=== PATIENT | female | born 1995 | race Caucasian/White ===

== ENCOUNTER → 2024-02-05 10:24 | Outpatient (BNVA) | payer OTHER, SELFPAY | PROVIDERS: Visit Provider Emergency Medicine | DX: J02.9 Acute pharyngitis, unspecified (principal) | CPT/HCPCS: 87880 ==

== ENCOUNTER 2024-03-13 14:36 | Emergency (ER) | payer OTHER, MEDICAID, SELFPAY ==
[2024-03-13 15:20] VITALS: BP 104/71; PULSE 76; RESP 14; TEMP 37.1; O2SAT 96
[2024-03-13 16:54] LABS: Basophils # 0.1 10^3/uL (0.0-0.1); Basophils % 0.3 %; Eosinophils # 0.1 10^3/uL (0.0-0.8); Eosinophils % 0.9 %; Hematocrit 42.1 % (36-47); Lymphocytes # 1.5 10^3/uL (0.8-4.8); Lymphocytes % 9.3 %; Mean Corpuscular HGB Conc 31.4 g/dL (30-55); Mean Corpuscular Hemoglobin 26.1 pg (27-33); Mean Corpuscular Volume 83.4 fl (85-98); Mean Platelet Volume 10.7 fL (7.4-10.4); Monocytes # 0.8 10^3/uL (0.2-0.9); Monocytes % 5.2 %; Neutrophils # 13.57 10^3/uL (1.8-7.7); Neutrophils % 83.8 %; Nucleated Red Blood Cells % 0 %; Platelet Count 312 10^3/cmm (157-399); Red Blood Count 5.05 10^6/uL (3.85-5.65); Red Cell Distribution Width 14.6 % (12.1-15.1); White Blood Count 16.19 10^3/uL (3.29-11.43)
[2024-03-13 17:03] LABS: HCG, Serum Qual Negative (Negative)
[2024-03-13 17:11] LABS: Alanine Aminotransferase 26 U/L (0-33); Albumin Level 4.2 g/dL (3.5-5.2); Alkaline Phosphatase 88 U/L (35-105); Anion Gap 16.1 (5-19); Aspartate Amino Transferase 16 U/L (0-32); Blood Urea Nitrogen 11 mg/dL (6-20); Calcium 9.4 mg/dL (8.5-10.5); Carbon Dioxide 24 mmol/L (22-29); Chloride 102 mmol/L (98-107); Creatinine Clr Calc Pharmacy 94.2467; Globulin 3.2 g/dL (1.3-4.6); Glomerular Filtration Rate 117.4 mL/min (90-130); Glucose 96 mg/dL (65-115); Lipase 15 U/L (13-60); Osmolality Calculated 285 mOsm/kg (285-295); Potassium 4.1 mmol/L (3.5-5.1); Sodium 138 mmol/L (136-145); Total Bilirubin 0.2 mg/dL (0.15-1.2); Total Protein 7.4 g/dL (6.6-8.7)
[2024-03-13 17:50] VITALS: BP 121/69; PULSE 71; O2SAT 95
[2024-03-13 17:59] LABS: Bilirubin Urine Negative (Negative); Blood Urine Negative (Negative); Glucose Urine UA Negative (Normal); Ketones Urine Negative (Negative); Leukocyte Esterase Urine Negative (Negative); Nitrate Urine Negative (Negative); Protein Urine Trace (Negative); Specific Gravity, Urine 1.022 (1.005-1.030); Urine Appearance Turbid (CLEAR); Urine Color Yellow (Yellow)
--- NOTE | 2024-03-13 18:01 | CTR_ITS ---
PROCEDURE INFORMATION: Exam: CTA Chest With Contrast Exam date and time: 03/13/2024 6:23 PM Age: 28 years old Clinical indication: Chest pressure; Patient HX: Chest pain; Ruq pain; Tachycardia; Leukocytosis; Additional info: Ruq R lower chest pain, tachycardia TECHNIQUE: Imaging protocol: Computed tomographic angiography of the chest with contrast. Exam focused on the arteries. 3D rendering (Not supervised by radiologist): MIP and/or 3D reconstructed images were created by the technologist. Radiation optimization: All CT scans at this facility use at least one of these dose optimization techniques: automated exposure control; mA and/or kV adjustment per patient size (includes targeted exams where dose is matched to clinical indication); or iterative reconstruction. Contrast material: [id number]; Contrast volume: 62 ml; Contrast route: INTRAVENOUS (IV); COMPARISON: No relevant prior studies available. RADIATION DOSE METRICS: Total DLP (mGy-cm): 156.48 FINDINGS: Pulmonary arteries: No filling defects identified within the pulmonary arteries to suggest pulmonary embolism. Aorta: No thoracic aortic aneurysm or dissection. Lungs: No focal lung consolidation. Mild bibasilar atelectasis/scar. Pleural spaces: No pneumothorax. No pleural effusion. Heart: No cardiomegaly. No pericardial effusion. Mediastinal space: Visualized trachea and esophagus are unremarkable in appearance. Lymph nodes: No mediastinal or hilar lymphadenopathy. No axillary lymphadenopathy. Bones/joints: No acute bony abnormality. Soft tissues: Subcutaneous soft tissues are unremarkable. CT/CT angio chest PE protcl [id number] IMPRESSION: 1. No filling defects identified within the pulmonary arteries to suggest pulmonary embolism. 2. No thoracic aortic aneurysm or dissection. 3. No focal lung consolidation.
[2024-03-13 18:04] LABS: Add Urine Microscopic? YES; Bacteria Urine Trace /hpf; RBC Urine 0-2 /hpf (0-2)
--- NOTE | 2024-03-13 18:07 | ED_ITS ---
HPI - Abdominal Pain 2 General: Chief Complaint: Abdominal Pain Stated Complaint: n/v,headache Time Seen by Provider: 03/13/24 16:05 History of Present Illness: Healthy 28-year-old female with right upper quadrant/right lower chest discomfort for 24 hours. Pain is worse with taking a deep breath. She has been nauseated at times, not now. No vomiting or diarrhea. No fever. Minimal cough she says. No sputum production. She has not really had this pain before. No history of belly surgeries. She has missed a menstrual period she says. Related Data Home Medications Medication Instructions Recorded Confirmed fluoxetine 10 mg capsule 10 mg PO DAILY 02/05/24 02/16/24 Previous Rx's Medication Instructions Recorded ketorolac 10 mg tablet 10 mg PO TID PRN pain #10 tabs 03/13/24 ondansetron 8 mg disintegrating 8 mg PO Q8H 5 days #15 tabs 03/13/24 tablet Allergies Allergy/AdvReac Type Severity Reaction Status Date / Time No Known Allergies Allergy Verified 03/13/24 15:26 PFS ED 2 PFSH: Social History Smoking and tobacco/nicotine status: tobacco/nicotine user, details unknown Physical Exam 2 Const: COMMON NORMALS: no acute distress GENERAL APPEARANCE: cooperative; not ill appearing and not frail appearing HENMT: COMMON NORMALS: normocephalic, atraumatic and Normal external nose present HEAD & SCALP: normocephalic and atraumatic FACE & SINUS: normal facial exam and face symmetric NOSE: Normal external nose present Eye: COMMON NORMALS: Equal, round and reactive pupils present and EOMs intact bilaterally PUPIL: Yes Equal, round and reactive pupils present Neck/C-Spine: GENERAL: Yes trachea midline Chest: CHEST: Yes Symmetrical chest wall rise Resp: COMMON NORMALS: normal respiratory effort, No retractions, No use of accessory muscles and clear to auscultation bilaterally AUSCULTATION: clear to auscultation bilaterally Cardio: COMMON NORMALS: regular rate and regular rhythm RATE: regular rate RHYTHM: regular rhythm GI: COMMON NORMALS: Normal to inspection, nondistended, normoactive bowel sounds present Extremity: COMMON NORMALS: no pedal edema Neuro: [place] COMA SCALE: document GCS findings [place] coma scale eye opening: Spontaneous [place] coma scale verbal response: Orientated [place] coma scale motor response: Obey commands [place] coma scale total score: 15 S ENSORY EXAM: Yes extremities (intact) Psych: COMMON NORMALS: speech normal SPEECH: Yes normal speech Skin: COMMON NORMALS: no rashes or lesions noted GENERAL SKIN EXAM: no rashes or lesions noted Course 2 Vital Signs: Vital signs: Vital Signs Temperature 98.7 F 03/13/24 15:20 Pulse Rate 80 03/13/24 21:44 Respiratory Rate 17 03/13/24 21:07 Blood Pressure 105/71 03/13/24 21:44 Pulse Oximetry 100 03/13/24 21:44 Oxygen Delivery Me thod Room Air 03/13/24 21:07 MDM - Abdominal Pain Medical Decision Making 28-year-old female with somewhat pleuritic right-sided lower chest pain. Initially tachycardic, now not. Saturations have been 96 to 100% on room air. She is normotensive. However, white blood cell count is 16. BMP is normal. Lipase is 15. Urinalysis is negative. There is no hematuria or infection. CTA of the chest shows no PE, no consolidation/pneumonia, no pleural effusion. Right upper quadrant ultrasound is negative. Will treat for chest wall pain. She is to return for worsening symptoms. Outpatient follow-up Lab Data 03/13/24 16:35 03/13/24 16:35 Labs/Radiology: Radiology Impressions Chest CTA 03/13/24 18:01 IMPRESSION: 1. No filling defects identified within the pulmonary arteries to suggest pulmonary embolism. 2. No thoracic aortic aneurysm or dissection. 3. No focal lung consolidation. Gallbladder Ultrasound 03/13/24 19:44 IMPRESSION: 1. No cholelithiasis or sonographic evidence of acute cholecystitis. Laboratory Results WBC 16.19 10^3/uL (3.29-11.43) H 03/13/24 16:35 RBC 5.05 10^6/uL (3.85-5.65) 03/13/24 16:35 Hgb 13.20 g/dL (11.27-16.99) 03/13/24 16:35 Hct 42.1 % (36-47) 03/13/24 16:35 MCV 83.4 fl (85-98) L 03/13/24 16:35 MCH 26.1 pg (27-33) L 03/13/24 16:35 MCHC 31.4 g/dL (30-55) 03/13/24 16:35 RDW 14.6 % (12.1-15.1) 03/13/24 16:35 Plt Count 312 10^3/cmm (157-399) 03/13/24 16:35 MPV 10.7 fL (7.4-10.4) H 03/13/24 16:35 Neut % (Auto) 83.8 % 03/13/24 16:35 Lymph % (Auto) 9.3 % 03/13/24 16:35 Wirt % (Auto) 5.2 % 03/13/24 16:35 Eos % (Auto) 0.9 % 03/13/24 16:35 Baso % (Auto) 0.3 % 03/13/24 16:35 Neut # (Auto) 13.57 10^3/uL (1.8-7.7) H 03/13/24 16:35 Lymph # (Auto) 1.5 10^3/uL (0.8-4.8) 03/13/24 16:35 Wirt # (Auto) 0.8 10^3/uL (0.2-0.9) 03/13/24 16:35 Eos # (Auto) 0.1 10^3/uL (0.0-0.8) 03/13/24 16:35 Baso # (Auto) 0.1 10^3/uL (0.0-0.1) 03/13/24 16:35 Nucleated RBC % (auto) 0 % 03/13/24 16:35 Nucleated RBCs # 0.0 /100WBC 03/13/24 16:35 Sodium 138 mmol/L (136-145) 03/13/24 16:35 Potassium 4.1 mmol/L (3.5-5.1) 03/13/24 16:35 Chloride 102 mmol/L (98-107) 03/13/24 16:35 Carbon Dioxide 24 mmol/L (22-29) 03/13/24 16:35 Anion Gap 16.1 (5-19) 03/13/24 16:35 BUN 11 mg/dL (6-20) 03/13/24 16:35 Creatinine 0.6 mg/dL (0.5-0.9) 03/13/24 16:35 GFR Calculation 117.4 mL/min (90-130) 03/13/24 16:35 Glucose 96 mg/dL (65-115) 03/13/24 16:35 Calculated Osmolality 285 mOsm/kg (285-295) 03/13/24 16:35 Calcium 9.4 mg/dL (8.5-10.5) 03/13/24 16:35 Total Bilirubin 0.2 mg/dL (0.15-1.2) 03/13/24 16:35 AST 16 U/L (0-32) 03/13/24 16:35 ALT 26 U/L (0-33) 03/13/24 16:35 Alkaline Phosphatase 88 U/L (35-105) 03/13/24 16:35 Total Protein 7.4 g/dL (6.6-8.7) 03/13/24 16:35 Albumin 4.2 g/dL (3.5-5.2) 03/13/24 16:35 Globulin 3.2 g/dL (1.3-4.6) 03/13/24 16:35 Lipase 15 U/L (13-60) 03/13/24 16:35 HCG, Qual Negative (Negative) 03/13/24 16:35 Urine Color Yellow (Yellow) 03/13/24 17:40 Urine Appearance Turbid (CLEAR) A 03/13/24 17:40 Urine pH 8.0 (5-7) A 03/13/24 17:40 Ur Specific [place] 1.022 (1.005-1.030) 03/13/24 17:40 Urine Protein Trace (Negative) A 03/13/24 17:40 Urine Glucose (UA) Negative (Normal) 03/13/24 17:40 Urine Ketones Negative (Negative) 03/13/24 17:40 Urine Blood Negative (Negative) 03/13/24 17:40 Urine Nitrate Negative (Negative) 03/13/24 17:40 Urine Bilirubin Negative (Negative) 03/13/24 17:40 Urine Urobilinogen 1.0 mg/dL (Negative) 03/13/24 17:40 Ur Leukocyte Esterase Negative (Negative) 03/13/24 17:40 Urine RBC 0-2 /hpf (0-2) 03/13/24 17:40 Urine WBC 11-20 /hpf (0-5) H 03/13/24 17:40 Ur Squamous Epith Cells 6-10 /hpf (0-5) 03/13/24 17:40 Amorphous Sediment Not Reportable 03/13/24 17:40 Urine Bacteria Trace /hpf (NONE) 03/13/24 17:40 Hyaline Casts 3.30 /lpf 03/13/24 17:40 XR interpretation done by ED provider, pending radiology final review Discharge Plan Discharge Patient Disposition: Home Clinical Impression: Right-sided chest wall pain Condition: Stable Prescriptions: New ketorolac 10 mg tablet 10 mg PO TID PRN (Reason: pain) Qty: 10 0RF Continued ondansetron 8 mg tablet,disintegrating 8 mg PO Q8H 5 Days Qty: 15 0RF Discontinued ibuprofen 600 mg tablet 600 mg PO Q8H PRN (Reason: pain) Qty: 30 0RF Rx Instructions: take with food No Action fluoxetine 10 mg capsule 10 mg PO DAILY Discharge Orders: Discharge ED (Routine); Ordered 03/13/24 Ordered By: Esdras Strange Patient Instructions: Chest Wall Pain (ED), Opioid Safety, Pain Management Activity Restrictions/Additional Instructions: Return for fever, worsening pain despite treatment, vomiting liquids or medications, shortness of breath, any other concerning symptoms. See your doctor next week. Call tomorrow for an appointment. Medication as directed Stand Alone Forms: Work/School Release Coding Level of Care Code ED Computer Support Specialist for Khadra Arenas
[2024-03-13] MEDS: iohexol 350 mg/mL 500 mL Btl (per mL) IV (18:26)
[2024-03-13 18:40] VITALS: BP 108/70; PULSE 77; O2SAT 100
[2024-03-13 19:43] VITALS: BP 107/61; PULSE 100; RESP 18; O2SAT 98
--- NOTE | 2024-03-13 19:44 | USR_ITS ---
PROCEDURE INFORMATION: Exam: US Abdomen, Limited; Right Upper Quadrant Exam date and time: 03/13/2024 9:00 PM Age: 28 years old Clinical indication: Abdominal pain; Localized; Right upper quadrant (ruq); Additional info: Ruq pain TECHNIQUE: Imaging protocol: Real time ultrasound of the abdomen with image documentation. Limited exam focused on the right upper quadrant. COMPARISON: CT angio chest PE protcl [id number] 03/13/2024 6:23 PM FINDINGS: Liver: Visualized hepatic parenchyma is unremarkable. The liver contour is grossly smooth. Gallbladder: No evidence of cholelithiasis. No significant wall thickening or edema to suggest cholecystitis.The finished goods planner reports a negative sonographic Garcia's sign. Biliary ducts: The CBD is nondilated, measuring 6 mm. No sonographic evidence of intraductal stone. Pancreas: The pancreas is mostly obscured bowel gas. Visualized portions are grossly unremarkable. Right kidney: The right kidney is normal in echotexture and measures 7.9 cm in length. No evidence of hydronephrosis. US/US gall bladder [id number] IMPRESSION: 1. No cholelithiasis or sonographic evidence of acute cholecystitis.
--- NOTE | 2024-03-13 19:44 | PC.NURSE ---
Rounded on pt. Pt assisted to restroom at this time. Denies further needs.
[2024-03-13 21:07] VITALS: BP 108/65; PULSE 75; RESP 17; O2SAT 100
--- NOTE | 2024-03-13 21:08 | PC.NURSE ---
US at bedside at this time.
[2024-03-13] MEDS: ketorolac 30 mg/mL INJ IVP (21:43)
[2024-03-13] MEDS: ondansetron 2 mg/ML SDV 2 mL 4 MG IVP (21:43)
[2024-03-13 21:44] VITALS: BP 105/71; PULSE 80; O2SAT 100
== END 2024-03-13 21:55 | disposition home or self-care (01) ==
PROVIDERS: Emergency Medicine; Emergency Provider Emergency Medicine
DX: R07.89 Other chest pain (principal)
CPT/HCPCS: 36415; 71275; 76705; 80053; 81001; 83690; 84703; 85025; 96374; 96375; 99285; J1885; J2405

== ENCOUNTER → 2024-04-07 15:03 | Outpatient (BNVA) | payer MEDICAID, SELFPAY | PROVIDERS: Visit Provider Nurse Practitioner Women's Health | DX: N92.6 Irregular menstruation, unspecified (principal) | CPT/HCPCS: 81025; 84702 ==

== ENCOUNTER → 2024-04-22 13:27 | Outpatient (BNVA) | payer MEDICAID, SELFPAY | PROVIDERS: Visit Provider Nurse Practitioner Women's Health | DX: O26.891 Other specified pregnancy related conditions, first trimester (principal); Z3A.08 8 weeks gestation of pregnancy | CPT/HCPCS: 76801; 80307; 83036; 84315; 85025; 86592; 86762; 86803; 86850; 86900; 87086; 87340; 87806 ==

== ENCOUNTER → 2024-05-31 13:40 | Outpatient (BNVA) | payer MEDICAID, SELFPAY | PROVIDERS: Visit Provider Nurse Practitioner Women's Health | DX: Z34.01 Encounter for supervision of normal first pregnancy, first trimester (principal) | CPT/HCPCS: 84315 ==

== ENCOUNTER → 2024-06-06 13:05 | Outpatient (BNVA) | payer MEDICAID, SELFPAY | PROVIDERS: Visit Provider Obstetrics & Gynecology | DX: O26.891 Other specified pregnancy related conditions, first trimester (principal); Z3A.00 Weeks of gestation of pregnancy not specified | CPT/HCPCS: 84315; 87491; 87591; 87624; 87661 ==

== ENCOUNTER → 2024-06-22 13:45 | Outpatient (BNVA) | payer MEDICAID, SELFPAY | PROVIDERS: Visit Provider Nurse Practitioner Women's Health | DX: Z34.01 Encounter for supervision of normal first pregnancy, first trimester (principal) | CPT/HCPCS: 82105; 84315; 88175 ==

== ENCOUNTER → 2024-07-11 14:22 | Outpatient (BNVA) | payer MEDICAID, SELFPAY | PROVIDERS: Visit Provider Obstetrics & Gynecology | DX: O26.892 Other specified pregnancy related conditions, second trimester (principal); Z3A.20 20 weeks gestation of pregnancy | CPT/HCPCS: 76805 ==

== ENCOUNTER → 2024-08-08 13:47 | Outpatient (BNVA) | payer MEDICAID, SELFPAY | PROVIDERS: Visit Provider Nurse Practitioner Women's Health | DX: Z34.90 Encounter for supervision of normal pregnancy, unspecified, unspecified trimester (principal) | CPT/HCPCS: 84315 ==

== ENCOUNTER 2024-09-05 17:25 | Outpatient (CLI) | payer MEDICAID, SELFPAY ==
[2024-09-05 18:00] VITALS: BP 113/79; PULSE 80; RESP 16; TEMP 36.6; TEMP 36.7
[2024-09-05 18:06] VITALS: BMI 26.2
[2024-09-05 18:15] VITALS: BP 112/75; PULSE 80; RESP 16
== END 2024-09-05 18:25 | disposition home or self-care (01) ==
LOC: OPOB 17:28 → OBGYN 17:29
PROVIDERS: Visit Provider Obstetrics & Gynecology
DX: O26.899 Other specified pregnancy related conditions, unspecified trimester (principal); Z3A.00 Weeks of gestation of pregnancy not specified; R52 Pain, unspecified
CPT/HCPCS: 59025; 99211

== ENCOUNTER 2024-09-05 18:34 | Emergency (ER) | payer MEDICAID, SELFPAY ==
[2024-09-05 18:49] VITALS: BP 117/72; PULSE 86; RESP 16; TEMP 36.4; O2SAT 97
--- NOTE | 2024-09-05 19:28 | W.ED.GENADLT ---
HPI - General Adult General: Chief complaint: General Medical Stated complaint: 29 WKs Preg\OB Sent her here\Pop on lower rt Side Time Seen by Provider: 09/05/24 19:12 Source: patient Mode of arrival: ambulatory Limitations: no limitations History of Present Illness: Patient is a 29-year-old female approximately 29 weeks here for right rib pain. She states earlier today during a coughing fit she felt one of her right ribs pop or dislocate and has had pain since. She is not having any shortness of breath or difficulty breathing. Does report pain with deep inhalation. Patient states she was seen at OB prior to arrival here in the emergency department and she was cleared from their end. Onset (ago): hour(s) Location: chest Radiation: non-radiation Severity: moderate Pain Consistency: constant Relieving factors: none Exacerbating factors: other (baby kicking, deep inhalation, coughing, palpation, movement) Associated symptoms: Reports no associated symptoms and chest pain (R chest wall pain); Deny dyspnea, malaise, palpitations or syncope Treatments prior to arrival: none Related Data Previous Rx's ?Medication ?Instructions ?Recorded albuterol sulfate 90 mcg/actuation 1 inh inhalation QID PRN shortness 08/08/24 aerosol inhaler (Ventolin HFA) of breath or wheezing #6.7 grams cetirizine 10 mg tablet (Zyrtec) 10 mg PO DAILY #30 tabs 08/08/24 fluticasone propionate 50 1 spray intranasal BID #16 grams 08/08/24 mcg/actuation nasal spray,suspension (Flonase Allergy Relief) Allergies Allergy/AdvReac Type Severity Reaction Status Date / Time No Known Allergies Allergy Verified 07/19/24 14:19 Review of Systems Const: Denies: fever(s), chills, body aches, fatigue or malaise Card: Reports: chest pain (R chest wall pain); Denies: palpitations, irregular heart rhythm, edema, lightheadedness, syncope or pre-syncope Resp: Reports: pain on inspiration; Denies: dyspnea or chest congestion GI: Denies: abdominal pain : Denies: flank pain, dysuria or hematuria Musc: Denies: back pain PFS ED PFSH: Medical History No pertinent past medical history neghx: htn, dm Thryoid, Dvt/pe PCP: Yayo Sosa Surgical History No pertinent past surgical history Family History Denies family history of Colon cancer Ovarian cancer Prostate cancer Diabetes Heart disease Hyperlipidemia Breast cancer Hypertension Uterine cancer Thyroid disease Stroke Social History Smoking and tobacco/nicotine status: never used tobacco/nicotine Physical Exam Const: COMMON NORMALS: no acute distress, average body habitus, patient oriented x3, no limitations, healthy appearing, alert and well nourished Chest: COMMONS NORMALS: normal inspection of the chest OTHER: TTP R mid lateral rib pain; no crepitus; normal lung sounds Resp: COMMON NORMALS: normal respiratory effort and clear to auscultation bilaterally AUSCULTATION: clear to auscultation bilaterally Cardio: COMMON NORMALS: regular rate and regular rhythm RATE: regular rate RHYTHM: regular rhythm GI: INSPECTION: Yes gravid abdomen : COMMON NORMALS: Yes no CVA tenderness BLADDER/KIDNEY EXAM: Yes no CVA tenderness Back/Pelvis: COMMON NORMALS: no CVA tenderness, thoracic and lumbar spine normal to inspection and no thoracic nor lumbar tenderness Neuro: COMMON NORMALS: patient oriented x3 SENSORIUM/ORIENTATION: Yes alert Course Vital Signs: Vital signs: Vital Signs Temperature 97.6 F 09/05/24 18:49 Pulse Rate 86 09/05/24 18:49 Respiratory Rate 16 09/05/24 18:49 Blood Pressure 117/72 09/05/24 18:49 Pulse Oximetry 97 09/05/24 18:49 Oxygen Delivery Me thod Room Air 09/05/24 18:49 MDM - General Adult Medical Decision Making CXR is unremarkable. Spoke about conservative therapies to help treat her chest wall pain. She has already been cleared by OB dept prior to arrival to ED. She does have OB follow-up later this week for routine care. Return to ED precautions discussed. Medical Records I reviewed the patient's medical records. XR interpretation done by ED provider, pending radiology final review Discharge Plan Discharge Patient Disposition: Home Clinical Impression: Rib pain on right side Condition: Stable Prescriptions: No Action albuterol sulfate [Ventolin HFA] 90 mcg/actuation HFA aerosol inhaler 1 inh inhalation QID PRN (Reason: shortness of breath or wheezing) Qty: 6.7 1RF Rx Instructions: use as directed fluticasone propionate [Flonase Allergy Relief] 50 mcg/actuation spray,suspension 1 spray intranasal BID Qty: 16 1RF Rx Instructions: administer into each nostril cetirizine [Zyrtec] 10 mg tablet 10 mg PO DAILY Qty: 30 1RF Rx Instructions: take one tab daily Discharge Orders: Discharge ED (Routine); Ordered 09/05/24 Ordered By: Shreya Roberson Referrals: Yayo Sosa MD [Primary Care Provider, Family Practice] Activity Restrictions/Additional Instructions: As we discussed, you may follow-up with your OB provider later this week for reevaluation. You may also follow-up with primary care anytime. We spoke about conservative therapies to help with your rib discomfort. You may return to the emergency department at anytime for anything or other concerns you may have. Print Language: Tamazight Coding Level of Care Code ED Retail Service Representative for Khadra Arenas
--- NOTE | 2024-09-05 19:33 | XRR_ITS ---
PROCEDURE INFORMATION: Exam: XR Chest Exam date and time: 09/05/2024 7:46 PM Age: 29 years old Clinical indication: Chest wall pain; Additional info: L chest wall/rib pain; Preg TECHNIQUE: Imaging protocol: Radiologic exam of the chest. Views: 1 view. COMPARISON: CT angio chest PE protcl [id number] 03/13/2024 6:23 PM FINDINGS: Lungs: No focal consolidation or other acute appearing pulmonary opacity. Pleural spaces: No pleural effusion or pneumothorax noted. Heart/Mediastinum: There is no cardiomegaly. Bones/joints: No acute osseous abnormality. Intraperitoneal space: There is no free intraperitoneal gas. XR/XR chest 1V portable [id number] IMPRESSION: No acute findings.
[2024-09-05 20:21] VITALS: BP 120/84; PULSE 85; RESP 16; O2SAT 99
== END 2024-09-05 20:22 | disposition home or self-care (01) ==
PROVIDERS: Emergency Provider Physician Assistant; PCP Family Medicine
DX: R07.81 Pleurodynia (principal); O26.893 Other specified pregnancy related conditions, third trimester; Z3A.29 29 weeks gestation of pregnancy
CPT/HCPCS: 71045; 99283

== ENCOUNTER → 2024-09-08 15:10 | Outpatient (BNVA) | payer MEDICAID, SELFPAY | PROVIDERS: Visit Provider Nurse Practitioner Women's Health | DX: Z34.00 Encounter for supervision of normal first pregnancy, unspecified trimester (principal) | CPT/HCPCS: 82950; 84315; 85025 ==

== ENCOUNTER → 2024-09-15 08:55 | Outpatient (BNVA) | payer MEDICAID, SELFPAY | PROVIDERS: Visit Provider Obstetrics & Gynecology | DX: Z34.90 Encounter for supervision of normal pregnancy, unspecified, unspecified trimester (principal) | CPT/HCPCS: 82951; 82952 ==

== ENCOUNTER → 2024-10-03 15:10 | Outpatient (BNVA) | payer MEDICAID, SELFPAY | PROVIDERS: Visit Provider Obstetrics & Gynecology | DX: D50.9 Iron deficiency anemia, unspecified (principal); Z34.01 Encounter for supervision of normal first pregnancy, first trimester | CPT/HCPCS: 84315; 85025 ==

== ENCOUNTER → 2024-10-17 13:07 | Outpatient (BNVA) | payer MEDICAID, SELFPAY | PROVIDERS: Visit Provider Nurse Practitioner Women's Health | DX: O26.893 Other specified pregnancy related conditions, third trimester (principal); Z3A.34 34 weeks gestation of pregnancy | CPT/HCPCS: 76816; 84315 ==

== ENCOUNTER 2024-10-27 13:30 | Oncology outpatient (recurring) (ONCR) | payer MEDICAID, SELFPAY ==
[2024-10-25 14:14] VITALS: BP 100/67; PULSE 110; RESP 17; TEMP 37.2; O2SAT 98
[2024-10-25] MEDS: iron sucrose 200 MG in sodium chloride 0.9% (100 ml) 100 ML IV (14:30)
[2024-10-25 15:12] VITALS: BP 98/65; PULSE 77; TEMP 36.9; O2SAT 98
[2024-10-27 13:45] VITALS: BP 98/62; PULSE 69; RESP 16; TEMP 36.8; O2SAT 99
[2024-10-27] MEDS: iron sucrose 200 MG in sodium chloride 0.9% (100 ml) 100 ML IV (13:46)
[2024-10-27 14:25] VITALS: BP 96/63; PULSE 60; TEMP 36.2; O2SAT 100
== END 2024-10-27 23:59 | disposition home or self-care (01) ==
PROVIDERS: Absent Provider Nurse Practitioner Women's Health; Visit Provider Nurse Practitioner Women's Health
DX: D50.9 Iron deficiency anemia, unspecified (principal); Z79.899 Other long term (current) drug therapy; Z53.9 Procedure and treatment not carried out, unspecified reason
CPT/HCPCS: 96365; J1756; J7050

== ENCOUNTER 2024-11-08 12:23 | Oncology outpatient (recurring) (ONCR) | payer MEDICAID, SELFPAY ==
[2024-11-01] MEDS: iron sucrose 200 MG in sodium chloride 0.9% (100 ml) 100 ML IV (14:26)
[2024-11-01 15:02] VITALS: BP 100/61; PULSE 64
[2024-11-03 13:26] VITALS: BP 98/64; PULSE 68; TEMP 36.6; O2SAT 97
[2024-11-03] MEDS: iron sucrose 200 MG in sodium chloride 0.9% (100 ml) 100 ML IV (13:42)
[2024-11-08] MEDS: iron sucrose 200 MG in sodium chloride 0.9% (100 ml) 100 ML IV (12:50)
[2024-11-08 13:38] VITALS: BP 97/61; PULSE 80; RESP 16; TEMP 36.9; O2SAT 96
== END 2024-11-27 23:59 | disposition home or self-care (01) ==
PROVIDERS: Absent Provider Nurse Practitioner Women's Health; Visit Provider Nurse Practitioner Women's Health
DX: D50.9 Iron deficiency anemia, unspecified (principal); Z79.899 Other long term (current) drug therapy
CPT/HCPCS: 96365; J1756; J7050

== ENCOUNTER → 2024-11-14 16:09 | Outpatient (BNVA) | payer MEDICAID, SELFPAY | PROVIDERS: Visit Provider Obstetrics & Gynecology | DX: Z34.90 Encounter for supervision of normal pregnancy, unspecified, unspecified trimester (principal) | CPT/HCPCS: 84315 ==

== ENCOUNTER → 2024-11-21 15:49 | Outpatient (BNVA) | payer MEDICAID, SELFPAY | PROVIDERS: Visit Provider Obstetrics & Gynecology | DX: Z34.90 Encounter for supervision of normal pregnancy, unspecified, unspecified trimester (principal) | CPT/HCPCS: 84315; 87081 ==

== ENCOUNTER → 2024-11-30 13:13 | Outpatient (BNVA) | payer MEDICAID, SELFPAY | PROVIDERS: Visit Provider Obstetrics & Gynecology | DX: O26.893 Other specified pregnancy related conditions, third trimester (principal); Z3A.40 40 weeks gestation of pregnancy | CPT/HCPCS: 76819 ==

== ENCOUNTER 2024-11-30 16:50 | Inpatient (IN) | payer MEDICAID, SELFPAY ==
[2024-11-30] VITALS (22 sets, daily range): BP systolic 107–132; BP diastolic 64–79; PULSE 54–188; O2SAT 99–100; BMI 28.1
--- NOTE | 2024-11-30 15:09 | US_ITS ---
WS: [id number] ULTRASOUND OB FOCUSED HISTORY: LOW RACHAEL COMPARISON: Study earlier the same day. Single intrauterine gestation present in vertex presentation. Cervix is closed but partially obscured by the head deep within the pelvis. heart rate at 167 BPM. There are a few pockets of amniotic fluid identified. RACHAEL is calculated at 4.8 cm. Grade 3 placenta at the fundus. US/US OB limited [id number] IMPRESSION: 1. Amniotic fluid index 4.8 cm. Only a few pockets of fluid identified. Oligoh ydramnios. 2. Normal cardiac activity. 3. Grade 3 placenta.
[2024-11-30 17:02] LABS: Hematocrit 40.3 % (36-47); Hemoglobin 12.90 g/dL (11.27-16.99); Mean Corpuscular HGB Conc 32.0 g/dL (30-55); Mean Corpuscular Hemoglobin 25.0 pg (27-33); Mean Corpuscular Volume 78.3 fl (85-98); Nucleated Red Blood Cells % 0 %; Platelet Count 240 10^3/cmm (157-399); Red Blood Count 5.15 10^6/uL (3.85-5.65); White Blood Count 10.65 10^3/uL (3.29-11.43)
--- NOTE | 2024-11-30 17:35 | PM.OBGYHP ---
Providers/Chief Complaint Admitting Physician: Barrie Alcaraz MD Primary MUD ANALYSIS WELL LOGGING CAPTAIN: Barrie Alcaraz MD Chief Complaint: low fluid HPI MUD ANALYSIS WELL LOGGING CAPTAIN History of Present Illness Nilam Alfonso is a 29 year old female G1 EDC November 27, 2024 At 40 w 3 d No complications No c/o + active movements Was seen in clinic today Had BPP done in clinic which showed a significantly decreased RACHAEL of 2 Now admitted for induction of labor No pain, bleeding, fluid leakage Present Details : 1 Para: 0 Labs RPR: Negative GBS: Positive Medications/Allergies Home Medications ?Medication ?Instructions ?Recorded ?Confirmed ?Last Taken ?Type albuterol sulfate 90 mcg/actuation 1 inh inhalation QID PRN shortness 08/08/24 11/21/24 Unknown Rx aerosol inhaler (Ventolin HFA) of breath or wheezing #6.7 grams cetirizine 10 mg tablet (Zyrtec) 10 mg PO DAILY #30 tabs 08/08/24 11/21/24 Unknown Rx fluticasone propionate 50 1 spray intranasal BID #16 grams 08/08/24 11/21/24 Unknown Rx mcg/actuation nasal spray,suspension (Flonase Allergy Relief) Allergies Allergy/AdvReac Type Severity Reaction Status Date / Time No Known Allergies Allergy Verified 11/21/24 15:52 PFSH MUD ANALYSIS WELL LOGGING CAPTAIN PFSH: Medical History (Updated 11/30/24 @ 23:14 by Barrie Alcaraz MD) No pertinent past medical history neghx: htn, dm Thryoid, Dvt/pe PCP: Yayo Sosa Surgical History No pertinent past surgical history Family History Denies family history of Colon cancer Ovarian cancer Prostate cancer Diabetes Heart disease Hyperlipidemia Breast cancer Hypertension Uterine cancer Thyroid disease Stroke Social History Smoking and tobacco/nicotine status: never used tobacco/nicotine History History History 1 Term Miscarriages/Ectopic Living Children Care ZI Calculator Estimated Delivery Date Method Current WG Current Estimate 11/27/24 Ultrasound #1 40w 3d Other Estimates 10/04/24 LMP (Uncertain) 48w 1d Specific Issues/Plans UNKNOWN LMP- 8wk sono dates RASH-- derm did bx 05/30/24, 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 VS normal General comfortable, awake, alert Lungs: clear Cor: RRR FH 36 cm, cephalic Cervix: closed / long / -3 / posterior Ext: no edema External monitor: heart tracing good variability, + accelerations Data 11/30/24 16:38 Results Labs OB ([facility]): Obstetrics US Today Obstetrics US/Biophysical Profile Today Blood Type O Positive Today Antibody Screen Negative Today Hct, (36-47) 40.3 % Today Hgb, (11.27-16.99) 12.90 g/dL Today Rho(D) Type Rh positive Today Plt Count, (157-399) 240 10^3/cmm Today Hep Bs Antigen, (Nonreactive) Non-reactive 04/22/24 Hepatitis C Antibody, (Nonreactive) Non-reactive 04/22/24 Rubella IgG Antibody, (0.0-10.0) 25.8 IU/mL H 04/22/24 RPR, (Nonreactive) Nonreactive 04/22/24 HIV 1&2 Ab & HIV 1 Ag, (Non-Reactiv) Non-reactive 04/22/24 Glucose 1 Hr 50 gm, (85-140) 145 mg/dL H 09/08/24 Gest Glucose Tolerance mg/dL 09/15/24 Hemoglobin A1c, (4.0-6.0) 5.0 % 04/22/24 Ser , Semi-Qnt 74454.00 mIU/mL 04/07/24 HCG, Qual, (Negative) Positive H 04/07/24 Urine Opiates Screen, (Negative) Negative ng/mL 04/22/24 Ur Barbiturates Screen, (Negative) Negative ng/mL 04/22/24 Ur Phencyclidine Scrn, (Negative) Negative ng/mL 04/22/24 Ur Amphetamines Screen, (Negative) Negative ng/mL 04/22/24 U Benzodiazepines Scrn, (Negative) Negative ng/mL 04/22/24 Urine Cocaine Screen, (Negative) Negative ng/mL 04/22/24 U Marijuana (THC) Screen, (Negative) Negative ng/mL 04/22/24 Micro Urine Specimen 04/22/24 Pap Smear Interpret See note 06/22/24 A&P Assessment and plan 1. Supervision of normal first : 40 w 3 d Oligohydramnios Fetus reassuring Admit for labor induction Plan Cytotec 25 ug intravaginal 2. GBS carrier: plan Abx during labor PDMP PDMP Reviewed: Not Reviewed Attestations Medical Necessity Statement*: patient at 40 w 3 d, admitted for induction of labor Coding Level of Care Code Acute Code for Chg Fwd Diagnoses Supervision of normal first Z34.00 GBS carrier Z22.330
[2024-11-30] MEDS: penicillin g potassium 5,000,000 UNIT in sodium chloride 0.9% (plus) 100 ML 100 UNIT IV (17:46)
[2024-11-30] MEDS: PENICILLIN G POTASSIUM 2,500,000 UNIT/50 ML BAG 50 UNIT IV (21:45)
--- NOTE | 2024-11-30 22:20 | P.PN_ITS ---
HAT BRAIDER Subjective 2 Subjective: Interval history: Feeling painful uterine contractions Patient requests epidural Fetus reassuring Cervix: difficult exam due to guarding Plan epidural for pain relief and also to facilitate cervical exams Labor: Station: -3 Amniotic Membrane Status: Intact Monitor Mode: External Contraction Pattern: Regular Status: Category I Vitals/I&O/Wt Last Vital Signs Pulse 64 11/30/24 21:12 BP 125/73 11/30/24 21:03 Pulse Ox 99 11/30/24 21:12 O2 Del Method Room Air 11/30/24 16:38 11/30/24 11/30/24 12/01/24 14:59 22:59 06:59 Intake Total 362.500 / 362.500 Balance 362.500 / 362.500 Weight last 48 hrs Weight 130 lb Data 11/30/24 16:38 A&P Assessment and plan 1. Supervision of normal first : 2. GBS carrier: PDMP PDMP Reviewed: Not Reviewed Attestations 2 Medical Necessity Statement*: patient at 40 w 3 d, admitted for induction of labor Coding Level of Care Code Acute Code for Chg Fwd Diagnoses Supervision of normal first Z34.00 GBS carrier Z22.330
[2024-11-30] MEDS: ROPivacaine premix 200 MG/100 ML PREMIX 10 MG EPIDURAL (23:56)
[2024-12-01] VITALS (126 sets, daily range): BP systolic 88–142; BP diastolic 50–82; PULSE 58–127; TEMP 36.8–37.3; O2SAT 98–100
--- NOTE | 2024-12-01 | P.ANESASSM_ITS ---
Pre-Anesthetic Assessment Height/Weight: Height 1.45 m Weight 58.967 kg Pulse BP Pulse Ox O2 Del Method 91 121/76 99 Room Air 11/30/24 23:57 11/30/24 23:57 11/30/24 23:57 11/30/24 16:38 Preop Diagnosis: Intrauterine labor epidural Familial anesthetic complications: none Was Beta Jose Alejandro taken within 24 hours: N/A Was Clonidine taken within 24 hours: N/A Social No alcohol and No tobacco Exam alert, oriented x 3 and clear to auscultation bilaterally Airway Mallampati: Class II Dentition: full History/ROS No significant history except as noted Pulmonary Asthma CV/HEM Anemia None reported Hepatic None reported GI None reported Metabolic None reported Musc/skel None reported Neuropsych None reported Anesthetic Plan ASA status: 2 Anesthesia: Anesthesia Evaluation and Regional (specify below) Risk of > 500 ml blood loss (7ml/kg in children): Yes, adequate IV access and fluids planned Medications/Allergies Home Medications ?Medication ?Instructions ?Recorded ?Confirmed ?Last Taken ?Type albuterol sulfate 90 mcg/actuation 1 inh inhalation QI D PRN shortness 08/08/24 11/21/24 Unknown Rx aerosol inhaler (Ventolin HFA) of breath or wheezing # 6.7 grams cetirizine 10 mg tablet (Zyrtec) 10 mg PO DAILY #30 ta bs 08/08/24 11/21/24 Unknown Rx fluticasone propionate 50 1 spray intranasal BID #16 g jose 08/08/24 11/21/24 Unknown Rx mcg/actuation nasal spray,suspension (Flonase Allergy Relief) Allergies Allergy/AdvReac Type Severity Reaction Status Date / Time No Known Allergies Allergy Verified 11/21/24 15:52 Current Medications Generic Name Dose Route Start Last Admin Trade Name Freq PRN Reason Stop Dose Admin Dextrose/Lactated Ringer's 1,000 mls @ 125 mls/hr 11/30/24 17:00 11/30/24 23:38 Dextrose 5%-Lactated Ringers IV 125 mls/hr .Q8H SARAH Infusion Penicillin G Potassium 2,500,000 unit in 50 mls @ 50 mls/hr 11/30/24 21:00 11/30/24 22:45 IV Infused Q4H SARAH Infusion Protocol Ropivacaine 200 mg in 100 mls @ 10 mls/hr 11/30/24 22:30 11/30/24 23:56 Naropin Premix EPIDURAL 10 mls/hr .Q10H SARAH Administration Sodium Chloride 1,000 mls @ 999 mls/hr 11/30/24 22:23 11/30/24 23:38 Sodium Chloride 0.9% IV Infused .Q1H1M PRN Infusion See label comments PFSH Anesthesia Medical History (Updated 11/30/24 @ 23:14 by Barrie Alcaraz MD) No pertinent past medical history neghx: htn, dm Thryoid, Dvt/pe PCP: Yayo Sosa Surgical History No pertinent past surgical history Family History Denies family history of Colon cancer Ovarian cancer Prostate cancer Diabetes Heart disease Hyperlipidemia Breast cancer Hypertension Uterine cancer Thyroid disease Stroke Social History Smoking and tobacco/nicotine status: never used tobacco/nicotine Female Reproductive History : 1 Data Anesthesia 11/30/24 16:38 Short CBC 11/30/24 Range/Units 16:38 WBC 10.65 (3.29-11.43) 10^3/uL Hgb 12.90 (11.27-16.99) g/dL Hct 40.3 (36-47) % MCV 78.3 L (85-98) fl Plt Count 240 (157-399) 10^3/cmm Neut % (Auto) 76.1 % Neut # (Auto) 8.11 H (1.8-7.7) 10^3/uL Blood Bank 11/30/24 16:38 Blood Type O Positive Rho(D) Type Rh positive Antibody Screen Negative Anesthesia Procedures Epidural Time Out Performed: Yes Consents Signed: Procedure Consent Consent: requested by attending/covering physician, from patient, risks and benefits reviewed and patient agrees to proceed Lumbar Level: L4-L5 Epidural position: sitting Epidural procedure: sterile prep of area, 1% lidocaine to numb the area, 18 g needle, negative for paresthesia passed, neg for paresthesia, test dose given, 1.5% xylocaine 1:200k epi, 0.2% Ropivacaine bolus ml (5), placed PCEA, no systemic response, sterile dressing applied, L.U.D. no apparent complications and 0.2% Ropiavacaine @ mls/hr (10) Additional Comments: ODALYS 5cm, catheter easily threaded to 5cm in the space, VS monitored throughout and remained stable. Pt edcuated on EQUITY RESEARCH ANALYST and reports adequate pain relief with epidural
[2024-12-01] MEDS: PENICILLIN G POTASSIUM 2,500,000 UNIT/50 ML BAG 50 UNIT IV ×6 (01:46→22:38)
[2024-12-01] MEDS: oxytocin 30 UNIT/500 ML BAG IV (06:13)
[2024-12-01] MEDS: ondansetron 2 mg/ML SDV 2 mL 4 MG IVP ×2 (07:06→23:35)
[2024-12-01] MEDS: ROPivacaine premix 200 MG/100 ML PREMIX 10 MG EPIDURAL ×3 (09:13→22:39)
--- NOTE | 2024-12-01 16:15 | P.PN_ITS ---
HYDRAULIC MINER Subjective 2 Subjective: Interval history: fetus reassuring patient had spontaneous rupture of membranes earlier comfortable with epidural cx: 6 cm / 90 / -2 IUPC, FSE placed patient already receiving antibiotics IV continue labor management Labor: Station: 0 Amniotic Membrane Status: Ruptured Monitor Mode: Internal (IUPC) Contraction Pattern: Regular Uterine Tone Measurement: 20 Status: Category I Vitals/I&O/Wt Last Vital Signs Temp 99.5 F 12/02/24 09:46 Pulse 113 H 12/02/24 13:27 Resp 18 12/02/24 07:00 BP 118/74 12/02/24 13:21 Pulse Ox 98 12/02/24 13:27 O2 Del Method Room Air 11/30/24 16:38 12/01/24 12/02/24 12/02/24 22:59 06:59 14:59 Intake Total 2304.75 / 2540.117 1159.733 / 3699.850 1666.667 / 1666.667 Output Total 800 / 1300 75 / 1375 1100 / 1100 Balance 1504.75 / 8906.511 6888.733 / 2324.850 566.667 / 566.667 Weight last 48 hrs Weight 130 lb Physical Exam 2 Urinary Catheter Management: Samson Latex: Cath Placed During This Visit: yes Reason for Continuing Indwelling Catheter: Required Immobilization for Trauma or Surgery or Anesthesia Urinary Catheter Date of Insertion: 12/02/24 Urinary Catheter Time of Insertion: 04:40 Data 12/02/24 11:55 A&P Assessment and plan 1. Supervision of normal first : PDMP PDMP Reviewed: Not Reviewed Attestations 2 Medical Necessity Statement*: patient at 40 w 3 d, admitted for induction of labor Coding Level of Care Code Acute Code for Chg Fwd Diagnoses Supervision of normal first Z34.00
[2024-12-02] VITALS (112 sets, daily range): BP systolic 86–147; BP diastolic 49–75; PULSE 89–136; RESP 16–20; TEMP 36.2–38.3; O2SAT 93–100
--- NOTE | 2024-12-02 02:28 | P.ANES_ITS ---
Anesthesia Procedures Procedure/Date: 12/02/24 STAFF DEVELOPMENT NURSE called to room for pain with pushing. bolused epidural 100mcc fentanyl and 8ml .25% bupi at 0232.
--- NOTE | 2024-12-02 02:28 | ANES.PROC ---
Anesthesia Procedures Procedure/Date: 12/02/24 FURNITURE ARRANGER called to room for pain with pushing. bolused epidural 100mcc fentanyl and 8ml .25% bupi at 0232.
[2024-12-02] MEDS: PENICILLIN G POTASSIUM 2,500,000 UNIT/50 ML BAG 50 UNIT IV (02:54)
[2024-12-02] MEDS: ROPivacaine premix 200 MG/100 ML PREMIX 10 MG EPIDURAL (03:42)
[2024-12-02] MEDS: citric acid-sodium citrate 30 mL UDC PO (05:21)
[2024-12-02] MEDS: metoclopramide 5 mg/mL SDV 2 mL 10 MG IVP (05:21)
--- NOTE | 2024-12-02 06:45 | PM.OP ---
Operative Report Date of procedure: December 02, 2024 Pre-op diagnosis: 40 w 3 d oligohydramnios induction of labor complete dilatation / + 1 station persistent occiput transverse failed vacuum extraction heart tracing with repetitive late decelerations second-degree perineal laceration Post-op diagnosis: 40 w 3 d oligohydramnios induction of labor complete dilatation / + 1 station persistent occiput transverse failed vacuum extraction heart tracing with repetitive late decelerations second-degree perineal laceration foul-smelling meconium-stained amniotic fluid Post-op findings: Persistent occiput transverse Amniotic fluid foul-smelling with 3+ meconium normal uterus, tubes, and ovaries Procedure done: primary low-transverse repair of second-degree perineal laceration Implants: none Specimens removed/disposition: placenta and cord, discarded cord gases, sent to lab Surgeon: Barrie Alcaraz MD Anesthesia: Epidural Estimated blood loss (mL): 500 Complications: none Findings: see above Condition: stable Disposition: floor Brief History: 29 y.o. at 40 w 3 d admitted for induction of labor Cx complete, +1 station Persistent occiput transverse heart tracing with repetitive late decelerations failed vacuum extraction Procedure: The patient was taken to the operating room and placed supine in the left lateral tilt position. Epidural anesthesia and a jones catheter were already in place. Time-out verification was carried out. The abdomen was prepped and draped in the usual sterile fashion. A Pfannenstiel incision was made and carried down through skin and subcutaneous tissue and fascia. The fascial incision was extended laterally with Milton scissors. The fascia was from the underlying rectus muscles. The rectus muscles were split in the midline. The peritoneum was entered bluntly avoiding underlying organs. A bladder flap was created. A low-transverse uterine incision was made and extended laterally and bluntly avoiding the uterine vessels. Foul-smelling meconium-stained amniotic fluid was encountered. The baby was delivered in cephalic presentation after the head was elevated manually out of the pelvis. The cord was clamped and cut and the baby was handed to pediatric staff. A segment of cord was obtained for cord gas, cord blood was obtained. The placenta was manually removed intact. The uterine cavity was bluntly curetted with wet laps. The uterine incision was then closed with a continuous interlocking stitch of O-chromic. Adequate hemostasis was seen. Inspection of the uterine incision again showed good hemostasis. The fascia was then closed with a continuous stitch of O-Vicryl. Additional interrupted stitches of O-Vicryl were used for fascial closure. The subcutaneous tissue was irrigated and inspected for hemostasis. The skin was then closed with Insorb mamie. Second-degree perineal laceration was repaired in layers with 2-O chromic. The patient was then taken to the floor for recovery in good condition. Postoperative condition: stable EBL: 700 cc Complications: none Sponge and instruments counts correct x two
--- NOTE | 2024-12-02 07:22 | P.OP_ITS ---
Brief Operative Note Date of procedure: 12/02/24 Pre-op diagnosis: 40+ wks gestation; oligohydramnios; induction of labor; fail ure to descend; Post-op diagnosis: same Procedure Done: primary low-transverse repair of second-degree perineal laceration Surgeon: Barrie Alcaraz Estimated blood loss (mL): 500 Complications: none Post-op Plan: floor Condition: stable Disposition: floor
[2024-12-02] MEDS: HYDROcodone-acetaminophen 5-325 mg Tablet PO (07:47)
[2024-12-02] MEDS: ferrous sulfate EC 325 mg Tablet PO ×2 (11:25→17:20)
[2024-12-02] MEDS: PRENATAL VIT NO.130/IRON/FOLIC 1 EACH TABLET PO (11:26)
[2024-12-02] MEDS: ampicillin-sulbactam 3 GM in sodium chloride 0.9% (plus) 50 ML IV ×2 (11:26→20:22)
[2024-12-02 12:01] LABS: Hematocrit 34.1 % (36-47); Hemoglobin 10.90 g/dL (11.27-16.99); Mean Corpuscular HGB Conc 32.0 g/dL (30-55); Mean Corpuscular Hemoglobin 25.1 pg (27-33); Mean Corpuscular Volume 78.4 fl (85-98); Platelet Count 173 10^3/cmm (157-399); Red Blood Count 4.35 10^6/uL (3.85-5.65); White Blood Count 14.65 10^3/uL (3.29-11.43)
[2024-12-02 12:55] LABS: Slide Review Slide Review Perform
[2024-12-02 12:59] LABS: Absolute Segmented Neutrophil 8.8 10/cmm (1.6-7.1); Atypical Lymphs 0.0 % (0-5); Band Neutrophils Absolute 3.4 10^3/cmm (0.0-1.2); Total Cells Counted 100 (0-100)
[2024-12-02 13:00] LABS: Anisocytosis 1+
[2024-12-02] MEDS: benzocaine-menthol 78 gm Canister 1 SPRAY TOPICAL (13:34)
[2024-12-03 04:30] VITALS: BP 101/64; PULSE 118; RESP 16; TEMP 37.1; O2SAT 95
[2024-12-03] MEDS: HYDROcodone-acetaminophen 5-325 mg Tablet PO ×2 (07:21→14:46)
[2024-12-03] MEDS: PRENATAL VIT NO.130/IRON/FOLIC 1 EACH TABLET PO (09:07)
--- NOTE | 2024-12-03 10:46 | ANE.PACU2 ---
Inpatient post-anesthesia follow up: Airway intact: Yes Vital signs: Temperature 98.8 F Pulse Rate 118 Respiratory Rate 16 Blood Pressure 101/64 Pulse Oximetry 95 Oxygen Delivery Me thod Room Air Oxygen Flow Rate Fraction of Inspir ed Oxygen Hydration adequate: Yes Nausea and vomiting: No Pain level: 1 Mental status: Baseline Epidural Start/End: Epidural Start Date: 11/30/24 Epidural Start Time: 23:50 Epidural End Date: 12/02/24 Epidural End Time: 07:52
--- NOTE | 2024-12-03 11:05 | P.PN_ITS ---
SALES PROGRAM MANAGER Subjective 2 Subjective: Interval history: c/o mild incisional pain no bleeding, nausea, vomiting tolerating PO well baby was transferred to [facility] Labor: Station: 0 Amniotic Membrane Status: Ruptured Monitor Mode: Internal (IUPC) Contraction Pattern: Regular Uterine Tone Measurement: 20 Status: Category I Vitals/I&O/Wt Last Vital Signs Temp 98.8 F 12/03/24 04:30 Pulse 78 12/03/24 11:15 Resp 16 12/03/24 04:30 BP 86/53 12/03/24 11:15 Pulse Ox 95 12/03/24 04:30 O2 Del Method Room Air 12/03/24 04:30 Physical Exam 2 Narrative: General comfortable, awake, alert VS afebrile, normal Lungs: clear Cor: RRR Abd: soft, nontender Wound clean and dry Ext: no edema postop Hgb 10.9 Urinary Catheter Management: Samson Latex: Cath Placed During This Visit: yes, but has since been removed by the nurse Reason for Continuing Indwelling Catheter: Decision to DC Catheter Urinary Catheter Date of Insertion: 12/02/24 Urinary Catheter Time of Insertion: 04:40 Date Urinary Catheter Removed: 12/02/24 Time Urinary Catheter Discontinued: 20:29 Data 12/02/24 11:55 A&P Assessment and plan 1. S/P : POD #1 primary low-transverse doing well continue postop care ambulate PDMP PDMP Reviewed: Not Reviewed Attestations 2 Medical Necessity Statement*: patient s/p , for postop care Coding Level of Care Code Acute Code for Chg Fwd Diagnoses S/P Z98.891
[2024-12-03 11:15] VITALS: BP 86/53; PULSE 78
[2024-12-03 17:07] VITALS: BP 85/51; PULSE 95
[2024-12-03 20:50] VITALS: BP 94/53; PULSE 75
[2024-12-04 03:36] VITALS: BP 100/59; PULSE 78
[2024-12-04 03:38] VITALS: RESP 17; TEMP 36.7
[2024-12-04] MEDS: HYDROcodone-acetaminophen 5-325 mg Tablet PO ×2 (03:38→13:35)
[2024-12-04] MEDS: PRENATAL VIT NO.130/IRON/FOLIC 1 EACH TABLET PO (09:03)
[2024-12-04] MEDS: ferrous sulfate EC 325 mg Tablet PO (09:03)
--- NOTE | 2024-12-04 13:01 | P.PN_ITS ---
COMPOSITE TECHNICIAN Subjective 2 Subjective: Interval history: no c/o eating, voiding, ambulating well no pain, bleeding wants to go home Labor: Station: 0 Amniotic Membrane Status: Ruptured Monitor Mode: Internal (IUPC) Contraction Pattern: Regular Uterine Tone Measurement: 20 Status: Category I Vitals/I&O/Wt Last Vital Signs Temp 98.1 F 12/04/24 03:38 Pulse 78 12/04/24 03:36 Resp 17 12/04/24 03:38 BP 100/59 12/04/24 03:36 Pulse Ox 95 12/03/24 04:30 O2 Del Method Room Air 12/03/24 04:30 Physical Exam 2 Narrative: General comfortable, awake, alert VS afebrile, normal Lungs: clear Cor: RRR Abd: soft, nontender Wound clean and dry Ext: no edema Urinary Catheter Management: Samson Latex: Cath Placed During This Visit: yes, but has since been removed by the nurse Reason for Continuing Indwelling Catheter: Decision to DC Catheter Urinary Catheter Date of Insertion: 12/02/24 Urinary Catheter Time of Insertion: 04:40 Date Urinary Catheter Removed: 12/02/24 Time Urinary Catheter Discontinued: 20:29 Data 12/02/24 11:55 A&P Assessment and plan 1. S/P : POD #2 primary low-transverse doing well discharge to home today instructions and precautions given no heavy lifting more than 15 lbs no intercourse x six weeks call/return if fever, chills, nausea, vomiting, headaches, abdominal pain, bleeding, inability to void, swelling, leg pain; feelings of depression or mood changes; wound redness, swelling, or discharge; chest pain; shortness of breath f/u in 1 week or PRN PDMP PDMP Reviewed: Last Reviewed 12/04/24 13:57 EDT by Barrie Alcaraz MD Attestations 2 Medical Necessity Statement*: patient s/p , plan to discharge to home today Coding Level of Care Code Acute Code for Chg Fwd Diagnoses S/P Z98.891
--- NOTE | 2024-12-04 13:03 | PM.OBGYDC ---
Discharge Providers MOUTHPIECE MAKER Date of Admission: 11/30/24 16:50 Date of Discharge: 12/04/24 Attending Provider at Admission: Barrie Alcaraz MD Attending Provider at Discharge: Barrie Alcaraz MD Consults: none Primary MOUTHPIECE MAKER: Barrie Alcaraz MD Diagnoses at Discharge Discharge Diagnosis 1. S/P : Details from hospital stay: 29 y.o. at 40 w 3 d admitted for induction of labor cervix progressed to complete, +1 station head was in persistent occiput transverse heart tracing had repetitive late decelerations vacuum extraction attempted but was not successful primary low-transverse was performed, as was repair of second-degree perineal laceration patient and baby did well patient was discharged to home on the second postoperative day Reason for Visit Reason for Visit: low fluid Brief History: 29 y.o. at 40 w 3 d admitted for induction of labor Hospital Course Hospital Course 29 y.o. at 40 w 3 d admitted for induction of labor cervix progressed to complete, +1 station head was in persistent occiput transverse heart tracing had repetitive late decelerations vacuum extraction attempted but was not successful primary low-transverse was performed, as was repair of second-degree perineal laceration patient and baby did well patient was discharged to home on the second postoperative day Information Peripartum Data: Delivery Method: Laceration description: Perineal - 2nd Degree Episiotomy description: None complications: none Physical Exam Narrative: General comfortable, awake, alert VS afebrile, normal Lungs: clear Cor: RRR Abd: soft, nontender Wound clean and dry Ext: no edema Urinary Catheter Management: Samson Latex: Cath Placed During This Visit: yes, but has since been removed by the nurse Reason for Continuing Indwelling Catheter: Decision to DC Catheter Urinary Catheter Date of Insertion: 12/02/24 Urinary Catheter Time of Insertion: 04:40 Date Urinary Catheter Removed: 12/02/24 Time Urinary Catheter Discontinued: 20:29 History History History 1 Term Miscarriages/Ectopic Living Children Discharge Data Studies Completed and Pending Completed Studies During Hospitalization Category Date Time Status [place] OB limited 55570 Stat Ultrasound 11/30/24 15:09 Completed Pending at discharge Category Date Time Status Hemagram Timed Lab 12/02/24 18:00 Uncollected Radiology Impressions Obstetrics Ultrasound 11/30/24 15:09 IMPRESSION: 1. Amniotic fluid index 4.8 cm. Only a few pockets of fluid identified. Oligohydramnios. 2. Normal cardiac activity. 3. Grade 3 placenta. Laboratory Results WBC 14.65 10^3/uL (3.29-11.43) H 12/02/24 11:55 RBC 4.35 10^6/uL (3.85-5.65) 12/02/24 11:55 Hgb 10.90 g/dL (11.27-16.99) L 12/02/24 11:55 Hct 34.1 % (36-47) L 12/02/24 11:55 MCV 78.4 fl (85-98) L 12/02/24 11:55 MCH 25.1 pg (27-33) L 12/02/24 11:55 MCHC 32.0 g/dL (30-55) 12/02/24 11:55 RDW 22.5 % (12.1-15.1) H 12/02/24 11:55 Plt Count 173 10^3/cmm (157-399) 12/02/24 11:55 MPV 11.2 fL (7.4-10.4) H 12/02/24 11:55 Neut % (Auto) 76.1 % 11/30/24 16:38 Lymph % (Auto) Not Reportable 12/02/24 11:55 Kendall % (Auto) Not Reportable 12/02/24 11:55 Eos % (Auto) 1.7 % 11/30/24 16:38 Baso % (Auto) 0.2 % 11/30/24 16:38 Neut # (Auto) 8.11 10^3/uL (1.8-7.7) H 11/30/24 16:38 Lymph # (Auto) Not Reportable 12/02/24 11:55 Kendall # (Auto) Not Reportable 12/02/24 11:55 Eos # (Auto) 0.2 10^3/uL (0.0-0.8) 11/30/24 16:38 Baso # (Auto) 0.0 10^3/uL (0.0-0.1) 11/30/24 16:38 Nucleated RBC % (auto) 0 % 11/30/24 16:38 Total Counted 100 (0-100) 12/02/24 11:55 Atypical Lymphs % 0.0 % (0-5) 12/02/24 11:55 Absolute Neutrophils 12.2 10^3/cmm (1.4-6.5) H 12/02/24 11:55 Segmented Neutrophils 60 % 12/02/24 11:55 Band Neutrophils 23.0 % 12/02/24 11:55 Absolute Lymphocytes 0.7 10^3/cmm (1.2-3.4) L 12/02/24 11:55 Lymphocytes (Manual) 5 % 12/02/24 11:55 Monocytes (Manual) 0.0 % 12/02/24 11:55 Absolute Monocytes 0.0 10^3/cmm (0.1-0.6) L 12/02/24 11:55 Eosinophils (Manual) 0 % 12/02/24 11:55 Absolute Eosinophils 0.0 10^3/cmm (0.0-0.7) 12/02/24 11:55 Basophils (Manual) 0.0 % 12/02/24 11:55 Absolute Basophils 0.0 10^3/cmm (0.0-0.2) 12/02/24 11:55 Metamyelocytes 4.0 % 12/02/24 11:55 Nucleated RBCs # 0.0 /100WBC 11/30/24 16:38 Platelet Estimate Normal (Normal) 12/02/24 11:55 Anisocytosis 1+ H 12/02/24 11:55 Insulin-like GF I Negative 11/30/24 15:05 Blood Type O Positive 11/30/24 16:38 Rho(D) Type Rh positive 11/30/24 16:38 Antibody Screen Negative 11/30/24 16:38 Procedures Performed induction of labor attempted vacuum extraction primary low-transverse repair of second-degree perineal laceration Vitals Last Vital Signs Temp 98.1 F 12/04/24 03:38 Pulse 78 12/04/24 03:36 Resp 17 12/04/24 03:38 BP 100/59 12/04/24 03:36 Pulse Ox 95 12/03/24 04:30 O2 Del Method Room Air 12/03/24 04:30 Results Labs OB ([facility]): Obstetrics US 11/30/24 Obstetrics US/Biophysical Profile 11/30/24 Blood Type O Positive 11/30/24 Antibody Screen Negative 11/30/24 Hct, (36-47) 34.1 % L 12/02/24 Hgb, (11.27-16.99) 10.90 g/dL L 12/02/24 Rho(D) Type Rh positive 11/30/24 Plt Count, (157-399) 173 10^3/cmm 12/02/24 Hep Bs Antigen, (Nonreactive) Non-reactive 04/22/24 Hepatitis C Antibody, (Nonreactive) Non-reactive 04/22/24 Rubella IgG Antibody, (0.0-10.0) 25.8 IU/mL H 04/22/24 RPR, (Nonreactive) Nonreactive 04/22/24 HIV 1&2 Ab & HIV 1 Ag, (Non-Reactiv) Non-reactive 04/22/24 Glucose 1 Hr 50 gm, (85-140) 145 mg/dL H 09/08/24 Gest Glucose Tolerance mg/dL 09/15/24 Hemoglobin A1c, (4.0-6.0) 5.0 % 04/22/24 Ser , Semi-Qnt 69189.00 mIU/mL 04/07/24 HCG, Qual, (Negative) Positive H 04/07/24 Urine Opiates Screen, (Negative) Negative ng/mL 04/22/24 Ur Barbiturates Screen, (Negative) Negative ng/mL 04/22/24 Ur Phencyclidine Scrn, (Negative) Negative ng/mL 04/22/24 Ur Amphetamines Screen, (Negative) Negative ng/mL 04/22/24 U Benzodiazepines Scrn, (Negative) Negative ng/mL 04/22/24 Urine Cocaine Screen, (Negative) Negative ng/mL 04/22/24 U Marijuana (THC) Screen, (Negative) Negative ng/mL 04/22/24 Micro Urine Specimen 04/22/24 Pap Smear Interpret See note 06/22/24 Discharge Plan Discharge Patient Disposition: Home Condition: Stable Prescriptions: New oxycodone-acetaminophen [Percocet] 5-325 mg tablet 1 tab PO Q8H PRN (Reason: pain) Qty: 20 0RF oxycodone-acetaminophen [Percocet] 5-325 mg tablet 1 tab PO Q8H PRN (Reason: pain) Qty: 20 0RF Continued albuterol sulfate [Ventolin HFA] 90 mcg/actuation HFA aerosol inhaler 1 inh inhalation QID PRN (Reason: shortness of breath or wheezing) Qty: 6.7 1RF Rx Instructions: use as directed fluticasone propionate [Flonase Allergy Relief] 50 mcg/actuation spray,suspension 1 spray intranasal BID Qty: 16 1RF Rx Instructions: administer into each nostril cetirizine [Zyrtec] 10 mg tablet 10 mg PO DAILY Qty: 30 1RF Rx Instructions: take one tab daily Discharge Order = DC NOW: Discharge Order (Routine); Ordered 12/04/24 Ordered By: Barrie Alcaraz Discharge Diet: Usual diet Discharge Activity: Increase activity as tolerated Patient Instructions: Oxycodone/Acetaminophen (By mouth), Depression (GEN), Opioid Safety (GEN), Preeclampsia and Eclampsia After Delivery (GEN), Hemorrhage (DC), OB Abdominal Surgery - [facility], OB [facility], OB Discharge Report, OB Food/Drug Interaction Guide, Opioid Safety, OB Home Care, OB [facility] Parent Packet, Patient Portal & [facility] Instructions Discharge Attestations MOUTHPIECE MAKER Time Spent in Discharge Care*: less than 30 min Coding Level of Care Code Acute Code for Chg Fwd Diagnoses S/P Z98.891
[2024-12-04 13:43] VITALS: BP 105/66; PULSE 107
[2024-12-04 13:45] VITALS: BP 105/66; PULSE 107; RESP 17; TEMP 36.5; O2SAT 98
== END 2024-12-04 13:50 | disposition home or self-care (01) | DRG 787 ==
LOC: OPOB 16:51 → OBGYN 16:51
PROVIDERS: Admitting Provider Obstetrics & Gynecology; Visit Provider Obstetrics & Gynecology
PROC: 0KQM0ZZ Repair Perineum Muscle, Open Approach (ICD-10-PCS; CPT 59514; principal; 2024-12-02 05:30)
DX: O48.0 Post-term pregnancy (principal); O41.03X0 Oligohydramnios, third trimester, not applicable or unspecified; Z3A.40 40 weeks gestation of pregnancy; O99.02 Anemia complicating childbirth; D64.9 Anemia, unspecified; O77.0 Labor and delivery complicated by meconium in amniotic fluid; O70.1 Second degree perineal laceration during delivery; O99.824 Streptococcus B carrier state complicating childbirth; O76 Abnormality in fetal heart rate and rhythm complicating labor and delivery; Z37.0 Single live birth; O99.52 Diseases of the respiratory system complicating childbirth; J45.909 Unspecified asthma, uncomplicated; O66.5 Attempted application of vacuum extractor and forceps
CPT/HCPCS: 36415; 51702; 59025; 59409; 76815; 84112; 84315; 85007; 85025; 86850; 86900; 96374; 96376; 99211; J0295; J1885; J2274; J2405; J2540; J2590; J2765; J2795; J3010; J3490; J7030; J7121; J9999